=== PATIENT | female | born 1990 | race Caucasian/White ===

== ENCOUNTER → 2018-04-23 20:42 | Outpatient (CLI) | payer OTHER, SELFPAY ==
--- NOTE | 2018-04-23 20:49 | DI.MRI.S_ITS ---
PROCEDURE: MR KNEE RT WO CON INDICATIONS: PAIN IN RT KNEE TECHNIQUE: Noncontrast sagittal PD fast spin echo and T2 fast spin echo with fat saturation, sagittal 3-D FLASH with fat saturation; coronal T1 spin echo and PD fast spin echo with fat saturation, and axial PD fast spin echo with fat saturation through the knee. COMPARISON: None. FINDINGS: Image quality: Excellent. Menisci: Undersurface tear involving the posterior horn of the medial meniscus however this was not well-seen on orthogonal pulse sequences. The lateral meniscus appears intact Cruciate ligaments: Complete rupture of the anterior cruciate ligament. The posterior cruciate ligament appears intact. Medial structures: The medial collateral ligament appears intact. The posterior oblique ligament, semimembranosus tendon insertions, oblique popliteal ligament, and meniscocapsular junction appear intact. Visualized portions of the pes anserinus tendons appear normal. No abnormal bursal fluid. Lateral structures: The lateral collateral ligament, long and short heads of the biceps femoris tendon appear intact. The popliteus tendon appears normal; the popliteofibular ligament appears intact. The posterosuperior and anteroinferior popliteomeniscal fascicles appear intact. The arcuate and fabellofibular ligaments appear intact, on either side of the lateral inferior geniculate artery. Iliotibial band appears normal. Anterior structures: There is prepatellar soft tissue swelling. Distal quadriceps tendinopathy and thickening. There is also mild proximal patellar tendinopathy. Patellar alignment is normal. No femoral trochlear dysplasia or ventral trochlear prominence. No edema in the infrapatellar fat pad. Bones and cartilage: No bone marrow contusions or fractures. Within the medial compartment the articular cartilage appears grossly intact. Within the lateral compartment, there is internal signal change at the central weightbearing tibial cartilage although no definite focal defect is seen. Within the patellofemoral compartment, there is diffuse surface fraying and low-grade partial-thickness loss of the patellar articular cartilage. Joint space: There is physiologic knee joint fluid. No Martel's cyst. Normal appearing synovial plicae are incidentally noted. IMPRESSION: Rupture of the anterior cruciate ligament. This finding is probably chronic in the absence of joint effusion or soft tissue edema Undersurface tear involving the posterior horn of the medial meniscus. Patellofemoral chondromalacia. Distal quadriceps and proximal patellar tendinopathy. Dictated by: Casa Sawant M.D. on 04/24/2018 at 8:46 Approved by: Casa Sawant M.D. on 04/24/2018 at 8:51
== END ==
PROVIDERS: Visit Provider Nurse Practitioner Family
DX: S83.511A Sprain of anterior cruciate ligament of right knee, initial encounter (principal); S83.241A Other tear of medial meniscus, current injury, right knee, initial encounter; M25.561 Pain in right knee; M22.41 Chondromalacia patellae, right knee
CPT/HCPCS: 73721

== ENCOUNTER → 2020-12-22 13:21 | Outpatient (CLI) | payer OTHER, SELFPAY ==
[2020-12-22 15:29] LABS: COVID19 -Nasal RAPID Negative (Negative)
== END ==
PROVIDERS: Visit Provider Family Medicine
DX: Z01.812 Encounter for preprocedural laboratory examination (principal); Z20.822 Contact with and (suspected) exposure to COVID-19
CPT/HCPCS: 87635

== ENCOUNTER 2020-12-24 05:51 | Day surgery (SDC) | payer OTHER, SELFPAY ==
[2020-12-21 13:16] VITALS: BMI 29.5
[2020-12-24] VITALS (12 sets, daily range): BP systolic 95–110; BP diastolic 57–74; PULSE 71–103; RESP 9–15; TEMP 36.2–36.9; O2SAT 92–100; BMI 29.5
--- NOTE | 2020-12-24 | DI.RAD.S_ITS ---
PROCEDURE: XR FOOT LT MIN 3V INDICATIONS: ORIF LEFT FOOT TECHNIQUE: 5 views of the foot were acquired. COMPARISON: None. FINDINGS: Bones: No fractures or dislocations. No suspicious bony lesions. Fusion procedure is documented by 4 total frontal and lateral views, involving fusion at the 1st and 2nd intertarsal articulation, and also between the 1st tarsal and 1st metatarsal base. Soft tissues: No tibiotalar joint effusion. Achilles tendon appears normal. IMPRESSION: Excellent anatomic alignment established after fusion procedure as discussed above. Dictated by: Blayne Melendez M.D. on 12/24/2020 at 15:03 Approved by: Blayne Melendez M.D. on 12/24/2020 at 15:04
[2020-12-24] MEDS: LACTATED RINGERS 1,000 ML 42 ML IV ×2 (07:27→09:44)
[2020-12-24] MEDS: SCOPOLAMINE 1 PATCH TOP (07:28)
--- NOTE | 2020-12-24 08:19 | SUR.OPER ---
Supine on padded OR bed, head on pillow, arms secured on padded arm boards at <90 degrees abduction, legs uncrossed, safety belt at thigh, tape over blanket over lower legs.
--- NOTE | 2020-12-24 08:20 | SUR.OPER ---
Addendum to positioning: Bump under left hip, left foot under control of surgeon, right foot taped over the blanket to OR table.
[2020-12-24] MEDS: BUPIVACAINE 0.5% W/ EPI (PF) 30 ML VIAL INJ (08:27)
[2020-12-24] MEDS: CEFAZOLIN 1 GM VIAL 2 GM IV (08:28)
--- NOTE | 2020-12-24 10:10 | PM.PREOP ---
Pre-operative Note COVID-19 COVID-19 status: Negative Interval Note History & Physical reviewed/Exam performed by Physician: Yes Changes to H&P: No H&P completed within 30 days and has changed as indicated here:: late typed entry. h&P verbally confirmed immediate preop
[2020-12-24] MEDS: OXYCODONE IR 5 MG TABLET PO (10:38)
[2020-12-24] MEDS: OXYCODONE/ACETAMINOPHEN 5/325 TABLET 1 TAB PO (12:06)
--- NOTE | 2020-12-24 13:21 | P.OP_ITS ---
Operative Date/Time/Diagnoses Date of procedure: 12/24/20 Time of procedure: 08:15 Pre-op diagnosis: Metatarsus primus varus left foot, hallux valgus, joint hypermobility. Tarsometatarsal hypermobility and inner cuneiform instability. Post-op diagnosis: same Procedure & Clinicians Procedure: 1. Arthrodesis tarsometatarsal joint multiple left, CPT code 07862 (1st tarsometatarsal fusion and inter cuneiform fusion) Same procedure as scheduled: Yes Indications: Sara is a 30-year-old female with a left painful metatarsus primus varus and hallux valgus deformity. She she has hyper mobile joints and a high Beighton score and instability. She has failed conservative treatment with shoe modifications. She has medial eminence pain gait changes and cramping. She has been indicated for correction of her painful foot deformities with tarsometatarsal fusion and distal soft tissue realignment. We discussed the possibility of an Abdiaziz osteotomy and additional inter cuneiform fusion to reduce the risk of recurrence. The risks and benefits of the procedure have been discussed with the patient even opportunity to ask questions. The risks of surgery include but are not limited to infection, malunion, nonunion, persistence of pain, damage to nerves and blood vessels, posttraumatic arthritis, DVT, PE, cardiopulmonary complications and . The patient expressed a thorough understanding of the risks and benefits of surgery and has elected to proceed. Consent was signed in the office. Surgeon: Lary Ortez Click Yes if Unassisted: Yes Anesthesia Type: General, Peripheral nerve block and Local Operative Notes Findings: Hypermobility 1st TMT and intercuneiform joints. Metatarsus primus varus and hallux valgus deformity with prominent medial eminence. A lateral lease was performed the 1st TMT was prepared and stabilized with a plantar Lapidus plate and additional inter cuneiform instability was addressed with a long screw through the plate. And this helped for the inter cuneiform instability and to maintain the IM correction. A small medial eminence resection was completed at the end of the case. Closure Type: primary Specimen(s): none sent Prosthetic devices, grafts, tissues, transplants, or devices: Arthrex standard plantar Lapidus plate and screws. 5 cc demineralized cortical fibers. Estimated Blood Loss (mL): 10 Blood products transfused: none Tourniquet time (min): 105 Procedure in detail: Patient was seen in the preoperative area the site of surgery was marked informed consent confirmed. A block was placed by the anesthesia team for postoperative pain control. She was brought back to the operating room by the anesthesia team positioned supine on operative table. All bony prominences were well padded. General anesthesia was administered. The left lower extremity was prepped and draped in the standard sterile fashion. A formal time-out procedure was performed confirming the patient's side and site of surgery administration of appropriate preoperative antibiotics. All were in agreement. Implants were in the room and accounted for. Attention was turned to the left foot. An Esmarch was used for exsanguination and a thigh tourniquet was raised to 250 mm of mercury. Attention was turned to the 1st TMT joint. A plantar medial incision was marked out from the level of the navicular to the midshaft of the metatarsal and the base was drawn all longer along the 1st MTP joint medially as well. A separate 1st web space dorsal incision was also drawn between the 2nd and 1st metatarsal heads for the lateral release. Lateral release and modified Alvarez procedures: Incision was made between the 1st and 2nd metatarsal heads the 1st webspace. Dissection was carried through the skin and subcutaneous tissues through the deep tissue until the abductor tendon was visualized. Metatarsal sesamoid ligament was incised. The sesamoid was then freed up and the lateral capsule incised and perforated and stretched in varus. Additionally the medial and incision was extended distally along the 1st MTP joint a care was taken to protect the nerve. The medial capsule was opened and the joint was exposed. A section of the medial capsule was then excised and this was repaired in a tightening [id number] fashion again at the end of the procedure. This was repaired with 3-0 Vicryl and then closed with 4 0 Monocryl and nylon maintaining the position of the toe. First tarsometatarsal fusion and Lapidus procedure and inter cuneiform fusion. A plantar medial incision from the navicular to the midshaft of the metatarsal was made through the skin. The abductor fascia was released from the bone and retracted plantarly. The 1st tarsometatarsal joint was identified. This was released and then planed with a TPS saw. The K-wire retractors were then used to distract the joint and the joint was prepped using the osteotomes to remove the cartilage. The TPS saw was also used to take a lateral wedge of the cuneiform to facilitate some correction of the metatarsus primus varus. The cortical bone fibers, allograft bone was then placed at the fracture site to facilitate union. Joystick K-wire was then placed and the metatarsal was rotated-supinated and pinned to the 2nd metatarsal. Pointed reduction clamp was also used between the 2nd metatarsal and the 1st metatarsal head to reduce the IM angle. The TMT joint was then cross pinned. This was checked on multiplanar fluoroscopy. Once I was happy with the alignment the plantar Lapidus plate was fit to the bone. There was some contouring under the medial cuneiform to allow this to fit nicely around the tibialis anterior tendon. This was then secured with BB tacks followed by securing the plate distally with locking screws next the 4-0 screw was placed through the oblong hole in a lag fashion once this engage the plate the transfixing wires were then removed. And finally additional screws were placed proximally to secure the plate. One proximal screw was advanced through the medial and middle cuneiform to address the inner cuneiform instability help maintain the IM angle. Once this was completed the remainder of the bone graft was packed around the fusion site. The soft tissue realignment is were tied in a final fashion and final radiographs were taken AP oblique and lateral planes confirming improved alignment of the forefoot deformity. The tourniquet was released hemostasis was achieved. A bunion style dressing was placed with Xeroform gauze and Rafaela wrap long pieces of silk tape followed by Webril and a posterior and U splint. The patient was then awoken from anesthesia and taken to the recovery room in good condition. There no immediate complications from this procedure. Counts were correct. Complications: none Post-operative Condition: stable Disposition: PACU Plan for aftercare: Nonweightbearing in splint. Elevate above the heart level. Aspirin for DVT prophylaxis. Pain medications and anti-inflammatories. Follow- up in 2 weeks.
== END 2020-12-24 13:16 | disposition home or self-care (01) ==
PROVIDERS: Referring Provider Orthopaedic Surgery Foot and Ankle Surgery; Visit Provider Orthopaedic Surgery Foot and Ankle Surgery
PROC: (CPT 27870; principal; 2020-12-24 07:45)
DX: Q66.212 Congenital metatarsus primus varus, left foot (principal); Q66.6 Other congenital valgus deformities of feet; M24.9 Joint derangement, unspecified; G43.909 Migraine, unspecified, not intractable, without status migrainosus; F32.9 Major depressive disorder, single episode, unspecified
CPT/HCPCS: 28730; 28292; 73630; 76000; J0690; J1100; J1170; J2405; J2704; J2765; J3010

== ENCOUNTER → 2021-06-15 12:02 | Outpatient (CLI) | payer OTHER, SELFPAY ==
[2021-06-15 13:48] LABS: COVID19 -Nasal RAPID Negative (Negative)
== END ==
PROVIDERS: Referring Provider Nurse Practitioner Family; Visit Provider Nurse Practitioner Family
DX: Z20.822 Contact with and (suspected) exposure to COVID-19 (principal)
CPT/HCPCS: 87635

== ENCOUNTER 2021-06-17 07:59 | Day surgery (SDC) | payer OTHER, SELFPAY ==
[2021-06-13 08:10] VITALS: BMI 29.5
[2021-06-17] VITALS (9 sets, daily range): BP systolic 94–109; BP diastolic 62–79; PULSE 77–99; RESP 12–16; TEMP 36.8–37.3; O2SAT 95–98; BMI 29.2
[2021-06-17] MEDS: LACTATED RINGERS 1,000 ML 42 ML IV ×2 (08:58→13:02)
--- NOTE | 2021-06-17 10:23 | SUR.PREOP ---
1020 - Monitoring initiated and maintained throughout procedure. Oxygen applied at 2L NC 1024 - Medication given by Dr Watkins. 1031 - Time out performed by Dr Watkins fro popliteal and saphenous nerve blocks. 1038 - Injection. 1040 - Block complete. Patient remained stable throughout procedure. No adverse reactions noted. See rhythm strips.
[2021-06-17] MEDS: CEFAZOLIN 1 GM VIAL 2 GM IV (11:01)
--- NOTE | 2021-06-17 11:24 | SUR.OPER ---
Lateral on a pascual bag, head on pillow, gel axillary roll in place, bottom leg bent with gel pad under knee to foot, upper leg (right) draped and supported with blankets. Upper arm supported by pillows and secured over bottom arm to padded arm board. Safety belt at hip, tape over blanket lower left leg.
--- NOTE | 2021-06-17 11:25 | PM.PROC.1 ---
Procedures Date/Time Date of procedure: 06/17/21 Time of procedure: 10:25 General Procedure description: Ultrasound guided popliteal sciatic nerve block for post op pain control after right flat foot deformity correction by Dr. Ortez. Risk and benefits of procedure discussed with patient. ASA monitoring applied to patient. Oxygen given via nasal cannula. 2 mg Versed and 50 mcg fentanyl given for procedural sedation. Skin site was prepped with chlorhexidine and allowed to fully dry. Sterile gloves, mask, hat and probe cover were used to maintain sterility. 2% lidocaine and 30ga needle was used to make a small skin wheal at needle insertion site. Under ultrasound guidance, a 21ga 100mm Pajunk needle was directed near the division of the sciatic nerve into tibial and peroneal nerve in the popliteal fossa (lateral approach). Patient reported no parasthesias. After negative aspiration, 20 mL 0.5% ropivacaine and 5mg dexamethasone were injected around sciatic nerve. In similar sterile fashion, the adductor canal near the femoral artery at the level of mid thigh was injected under ultrasound guidance with 20 mL 0.5% ropivacaine and 5mg dexamethasone. Patient tolerated procedure well. Upper photo: Sciatic nerve at popliteal fossa; Lower photo: Adductor canal at mid thigh.
--- NOTE | 2021-06-17 11:25 | SUR.OPER ---
Supine on padded OR bed, head on pillow, arms secured on padded arm boards at <90 degrees abduction, legs uncrossed, safety belt at waist, tape over blanket over lower left leg right leg draped free .
[2021-06-17] MEDS: BUPIVACAINE 0.25% (PF) 30 ML, EPINEPHrine 0.15 MG INJ (11:36)
--- NOTE | 2021-06-17 15:31 | DI.RAD.S_ITS ---
PROCEDURE: XR FOOT RT MIN 3V INDICATIONS: FOOT SURGERY TECHNIQUE: 5 fluoroscopic intraoperative spot films were obtained COMPARISON: [facility], , XR FOOT LT MIN 3V, 12/24/2020, 8:41. FINDINGS: Five low resolution fluoroscopic spot films were obtained shows interval calcaneal osteotomy and cannulated screw placement. Previous 1st tarsometatarsal arthrodesis with hardware is similar to the prior IMPRESSION: Fluoroscopic guidance Approved by: Can Molina M.D. on 06/17/2021 at 16:27
--- NOTE | 2021-06-17 15:49 | PM.PREOP ---
Pre-operative Note COVID-19 COVID-19 status: Negative Interval Note History & Physical reviewed/Exam performed by Physician: Yes Changes to H&P: No
--- NOTE | 2021-06-17 15:54 | PM.OP.1 ---
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 Pes planus right foot. Hallux valgus right foot. Achilles contracture Post-op diagnosis: same Procedure & Clinicians Procedure: 1. Flexor digitorum longus transfer, right CPT code 35540 2. Repair collateral ligament secondary, spring ligament, right CPT code 13383 3. Osteotomy calcaneus, right medial displacement. CPT code 62999-73 4. Tarsometatarsal joint single CPT code 52418 5. Tendo-Achilles lengthening, right [id number] 6. Removal implant deep CPT code 11381 Same procedure as scheduled: Yes Indications: Patient is a 31-year-old female with a failed bunion correction on the right side with persistent pain and pes planus, posterior tibialis tendon insufficiency deformities. She has had continued pain. She was indicated for revision procedure with flatfoot correction. The risks and benefits of the procedure have been discussed with the patient even opportunity to ask questions. The risks of surgery include but are not limited to infection, malunion, nonunion, persistence of pain, damage to nerves and blood vessels, posttraumatic arthritis, DVT, PE, cardiopulmonary complications and . The patient expressed a thorough understanding of the risks and benefits of surgery and has elected to proceed. Consent was signed in the office. Surgeon: Lary Ortez Anesthesia Type: General, Peripheral nerve block and Local Operative Notes Findings: Flexible flatfoot. Hallux valgus deformity. Hypermobility 1st ray. Achilles contracture Closure Type: primary Specimen(s): none sent Prosthetic devices, grafts, tissues, transplants, or devices: arthrex 6.7 screws 50 and 55mm arthrex plantar lapidus plate right regular. Applied: implant(s) Estimated Blood Loss (mL): 75 Blood products transfused: none Tourniquet time (min): 120 Procedure in detail: The patient was seen in the preoperative area the site of surgery marked informed consent confirmed. She was brought back to the operating room by the anesthesia team. A preoperative block was placed by the anesthesia team for postoperative pain control. Patient was positioned supine and general anesthetic was administered she was then rolled into a lateral position on a beanbag. Axillary bump was placed. Well-padded thigh tourniquet was placed. SCD on contralateral lower extremity. The right lower extremities prepped and draped in the standard sterile fashion. A formal time-out procedure was performed confirming the patient's side and site of surgery administration of appropriate preoperative antibiotic and this was re-dosed as indicated during the case. Implants were in the room and accounted for. All were in agreement. Flatfoot leg reconstruction. Medial displacement calcaneal osteotomy: An Esmarch bandage was then utilized to exsanguinate the limb this was raised to 250 mmHg. This stayed elevated for 2 hours then was taken down for greater than 30 minutes before elevated for a final 37 minutes. C-arm was brought in and a marking along the skin was made on the lateral border of the calcaneus posterior to the sural nerve and peroneal tendons. Incision was made down through this marking again staying posterior to the sural nerve and peroneal tendons. Dissection was carried through the skin and subcutaneous tissues bluntly down to the lateral wall the calcaneus. Subperiosteal dissection was then completed for exposure the retractors were placed around the calcaneus. Transverse osteotomy across the body of the calcaneus was then completed with a saw. This was gently taken through the medial wall which was protected by retractors. Periosteum was elevated off the medial wall. The with of the calcaneus was measured the calcaneus was slid proximally 1/3 of its width. This was then percutaneously fixed with 2x 6.7 mm screws from the Arthrex set these were 50 and 55 mm cannulated screws. Excellent fixation was obtained. Calcaneus was slid inferiorly and medially to gain height and medial displacement. The guidewires were then removed excess bone from the lateral wall was trimmed and impacted appropriate. Tissues were closed 2-0 Vicryl. Subcutaneous tissues with 4-0 Monocryl and 3-0 nylon. The posterior incisions were closed with 3-0 nylon. Tendo-Achilles lengthening: After correcting the heel, the leg was externally rotated and examined the patient did have an Achilles contracture. this was 0? of dorsiflexion with the knee fully extended not changing with knee flexion. A tendo-Achilles lengthening was then completed with a Jennings style a 3 incision technique increasing ankle dorsiflexion to approximately 15? with knee extension. FDL transfer: The leg was then externally rotated the beanbag let down the incision made medially along the course of the posterior tibialis tendon extending distally along the medial border of the 1st metatarsal. A tenosynovectomy of the posterior tibialis tendon was performed and the nonviable apart the tendon was removed. Once the posterior tibial tendon was completely debrided dissection was continued through the skin and subcutaneous tissues releasing the deep fashion reflecting the abductor hallucis inferiorly and the FDL was visualized. The FDL was harvested. The FDL was then sized and a 2-0 FiberWire suture was placed. This fit through a 5 mm Sizer. Dissection was completed through the dorsal and plantar aspects of the navicular in a 5 mm tunnel was made in the navicular centrally located in the medial 3rd using C-arm for guidance and protection of the articular surfaces. Spring ligament reconstruction: The spring ligament was inspected this was attenuated with a tear visualized. This was reconstructed using the Arthrex internal brace. 3.5 mm bio interference anchor with 2 loops of FiberTape was placed into the sustentacular am area of the calcaneus also using C-arm guidance. One loop of the fiber tape was brought from plantar to dorsal with the FDL tendon through the tunnel in the navicular with the other loop of the fiber tape going dorsal to plantar to create a sling reconstructing both the posterior tibialis tendon with the FDL transfer and spring ligament. The sling was secured to the navicular with a 4.75 bioabsorbable Arthrex bio interference screw. The remainder of the posterior tibialis tendon was tenodesed to the FDL. The FiberTapes from the spring ligament were then tied. Good motion and tension was demonstrated. C-arm demonstrated reconstruction of the arch. Lapidus fusion: Attention was then turned distally to the 1st tarsometatarsal joint the dissection was taken distally for a plantar Lapidus approach. The 1st TMT was exposed and denuded of cartilage with osteotomes and the power rasp. The 2.0 drill was then used to prepare the bone surfaces and demineralized bone putty was used to facilitate fusion this was placed into the site and the 1st TMT was reduced and pinned. Additionally a Arriaga clamp was used between the 1st and 2nd metatarsal holding alignment. A regular Arthrex right-sided plantar Lapidus plate what fit to the bone and secured distally with BB tacks and proximally. Next the locking screws were placed distally and a lag screw through the plate was completed. Prior to final securing of the lag screw the proximal and crossed joint fixation was removed. Plate was then fixed proximally. Hardware removal: At this time there was still and small bone spur. Incision was extended a little further distally to reach 1 of the retained 2 mm screws this was then removed and the TPS saw was used for a minimal shaving bunionectomy does contouring the medial bone spur. Once this was completed the tourniquet was released hemostasis was achieved. Final x-rays were taken demonstrating appropriate alignment and placement of hardware. The closure was completed with 3-0 PDS and 2-0 Vicryl suture. Subcutaneous closure with 4-0 Monocryl and 4-0 nylon. Additional local anesthetic was administered. Sterile dressing with Xeroform gauze Webril and a well-padded bulky Botello style splint was placed. Patient was woken from anesthesia and taken to recovery room in good condition. There no immediate complications Complications: none Post-operative Condition: stable Disposition: PACU Plan for aftercare: Nonweightbearing or touchdown for balance on the operative extremity. Aspirin for DVT prophylaxis. Follow-up in 2 weeks. Plan for 6 weeks of toe-touch or nonweightbearing.
== END 2021-06-17 17:22 | disposition home or self-care (01) ==
PROVIDERS: PCP Family Medicine; Referring Provider Orthopaedic Surgery Foot and Ankle Surgery; Visit Provider Orthopaedic Surgery Foot and Ankle Surgery
PROC: (CPT 27687; principal; 2021-06-17 09:45)
PROC: (CPT 28740; 2021-06-17 09:45)
DX: M76.821 Posterior tibial tendinitis, right leg (principal); M67.01 Short Achilles tendon (acquired), right ankle; M20.11 Hallux valgus (acquired), right foot; M21.41 Flat foot [pes planus] (acquired), right foot; M24.9 Joint derangement, unspecified
CPT/HCPCS: 28740; 27691; 27606; 20680; 27698; 28300; 64450; 73630; 76000; 81025; J0171; J0690; J1100; J1885; J2250; J2405; J2704; J3010